=== PATIENT | male | born 1935 | race Caucasian/White ===

== ENCOUNTER 2020-02-02 13:21 | Emergency (ER) | payer MEDICARE, SELFPAY ==
--- NOTE | 2020-02-02 13:22 | CT_ITS ---
EXAMINATION: CT HEAD WITHOUT CONTRAST (STROKE PROTOCOL) CLINICAL INFORMATION: Stroke protocol. Acute expressive aphasia, vomiting. COMPARISON: None TECHNIQUE: Contiguous axial imaging was performed from the skull base to vertex without intravenous administration of contrast. Additional 2-D coronal and sagittal reformatted images are generated on the CT workstation and uploaded to PACS. This CT examination was performed using dose optimization techniques as appropriate, variously including the following: *Automated exposure control *Adjustment of mA and/or kV according to patient size (this includes techniques or standardized protocols for targeted exams where dose is matched to indication/reason for exam; i.e. extremities or head) *Use of iterative reconstruction technique DLP: 623 mGy-cm FINDINGS: There is decreased attenuation in the left insular cortex, deep left frontal lobe, posterior left parietal temporal region and parieto-occipital region consistent with early acute infarct. Focal dense vessel sign involves the left M2 artery, possibly the M1 as well. There is no intracranial hemorrhage or hematoma. No hydrocephalus. No significant mass effect. No midline shift. No mass lesion. The calvarium appears intact. There is no pneumocephalus or orbital emphysema. The visualized sinuses and middle ears and mastoid air cells show no significant mucosal thickening. There are no air-fluid levels. Results are called and discussed with Emergency Department (Jose Clement NP) at [address]/CT head for stroke IMPRESSION: 1. 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 Positive dense vessel sign involving left M2 artery, possibly also involving M1, suggesting acute thrombus. 2. No hydrocephalus, midline shift, or hemorrhage.
--- NOTE | 2020-02-02 13:23 | XR_ITS ---
EXAMINATION: XR CHEST CLINICAL INFORMATION: AMS. COMPARISON: None TECHNIQUE: Frontal view of the chest was obtained. FINDINGS: The lungs are well-expanded and clear acute process. The heart size and pulmonary vascularity is normal. Mild dorsal spine spondylosis is noted. No lytic process. XR/XR chest 1V IMPRESSION: Unremarkable chest exam.
--- NOTE | 2020-02-02 13:23 | CT_ITS ---
EXAMINATION: CT ABDOMEN AND PELVIS WITHOUT CONTRAST CLINICAL INFORMATION: Vomiting. Acute stroke. COMPARISON: CT had noncontrast 02/02/2020 chest radiograph 02/02/2020 TECHNIQUE: Multidetector volumetric imaging was performed from the superior aspect of the liver through the pubic symphysis. Sagittal and coronal reformatted images were obtained on the technologist's workstation. No oral or intravenous contrast. This CT examination was performed using dose optimization techniques as appropriate, variously including the following: *Automated exposure control *Adjustment of mA and/or kV according to patient size (this includes techniques or standardized protocols for targeted exams where dose is matched to indication/reason for exam; i.e. extremities or head) *Use of iterative reconstruction technique DLP: 721 mGy-cm FINDINGS: LUNG BASES: Dependent atelectasis at the posterior bases. No effusion. LIVER, GALLBLADDER, AND BILIARY TREE: The liver is normal in size and smooth in contour and uniform in attenuation. There is no focal hepatic parenchymal lesion or intrahepatic biliary ductal dilatation. The gallbladder is normally distended. There is some increased attenuation in the dependent lumen which may represent sludge. There is no visible gallstone or gallbladder wall thickening or pericholecystic fluid. Common duct is unremarkable. PANCREAS: Unremarkable. SPLEEN: Unremarkable. ADRENAL GLANDS: Unremarkable. KIDNEYS AND URETERS: The kidneys are normal in size, shape, and attenuation. No hydronephrosis, hydroureter, or calculi seen. No perinephric stranding. BLADDER: Circumferential thickening of bladder likely from prostate related chronic outlet obstruction. GASTROINTESTINAL TRACT: There is moderate stool throughout the colon. There is no gaseous dilatation of bowel or focal inflammatory changes in the bowel or mesentery. Appendix is normal. There is no gastric dilatation. No ascites or fluid collection. ABDOMINAL WALL: Small fat-containing right inguinal hernia. LYMPH NODES: No lymphadenopathy. VASCULAR: Unremarkable. PELVIC VISCERA: Enlarged prostate with no nodular indentation bladder base and overall size is approximately 6.3 x 5.3 x 6.2 cm. OSSEOUS STRUCTURES: No acute bony abnormality. Degenerative changes lower thoracic and lumbar spine. Borderline spondylolisthesis L2-L3 and L1-L2. Marked osteoarthritis left hip. CT/CT abdomen pelvis wo con IMPRESSION: 1. Moderate stool throughout colon. No bowel obstruction or inflammatory changes in abdomen or pelvis. No gastric dilatation. 2. Possible sludge in the dependent gallbladder. No cholelithiasis, gallbladder wall thickening, or ductal dilatation. 3. Enlarged prostate with nodular indentation bladder base. Circumferential bladder wall thickening likely chronic outlet obstruction. Upper tracts unremarkable. 4. Degenerative changes spine. Borderline spondylolisthesis L2-L3 and L1-L2. Marked osteoarthritis left hip.
--- NOTE | 2020-02-02 13:23 | ECG_ITS ---
Test Reason : STROKE PROTOCOL Blood Pressure : / mmHG Vent. Rate : 064 BPM Atrial Rate : 064 BPM P-R Int : 196 ms QRS Dur : 156 ms QT Int : 466 ms P-R-T Axes : 065 -37 046 degrees QTc Int : 480 ms Normal sinus rhythm Left axis deviation Right bundle branch block Abnormal ECG No previous ECGs available Referred By: Jose Clement Electronically Signed By:FRANCISCA DEL CID MD
--- NOTE | 2020-02-02 13:28 | ED.AMS ---
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 segment of the left middle cerebral artery and occlusion of a few other M2 branches of the left middle cerebral artery. These findings coincide with the acute infarct is limited on the recent CT scan of the head. 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 This critical result was discussed with Kayla CORNELL at 1:49 PM on 02/02/2020 and it was ascertained that the content and urgency of the report was understood at the time of direct communication. 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 Acute stroke. COMPARISON: CT had noncontrast 02/02/2020 chest radiograph 02/02/2020 TECHNIQUE: Multidetector volumetric imaging was performed from the superior aspect of the liver through the pubic symphysis. Sagittal and coronal reformatted images were obtained on the technologist's workstation. No oral or intravenous contrast. This CT examination was performed using dose optimization techniques as appropriate, variously including the following: *Automated exposure control *Adjustment of mA and/or kV according to patient size (this includes techniques or standardized protocols for targeted exams where dose is matched to indication/reason for exam; i.e. extremities or head) *Use of iterative reconstruction technique DLP: 721 mGy-cm FINDINGS: LUNG BASES: Dependent atelectasis at the posterior bases. No effusion. LIVER, GALLBLADDER, AND BILIARY TREE: The liver is normal in size and smooth in contour and uniform in attenuation. There is no focal hepatic parenchymal lesion or intrahepatic biliary ductal dilatation. The gallbladder is normally distended. There is some increased attenuation in the dependent lumen which may represent sludge. There is no visible gallstone or gallbladder wall thickening or pericholecystic fluid. Common duct is unremarkable. PANCREAS: Unremarkable. SPLEEN: Unremarkable. ADRENAL GLANDS: Unremarkable. KIDNEYS AND URETERS: The kidneys are normal in size, shape, and attenuation. No hydronephrosis, hydroureter, or calculi seen. No perinephric stranding. BLADDER: Circumferential thickening of bladder likely from prostate related chronic outlet obstruction. GASTROINTESTINAL TRACT: There is moderate stool throughout the colon. There is no gaseous dilatation of bowel or focal inflammatory changes in the bowel or mesentery. Appendix is normal. There is no gastric dilatation. No ascites or fluid collection. ABDOMINAL WALL: Small fat-containing right inguinal hernia. LYMPH NODES: No lymphadenopathy. VASCULAR: Unremarkable. PELVIC VISCERA: Enlarged prostate with no nodular indentation bladder base and overall size is approximately 6.3 x 5.3 x 6.2 cm. OSSEOUS STRUCTURES: No acute bony abnormality. Degenerative changes lower thoracic and lumbar spine. Borderline spondylolisthesis L2-L3 and L1-L2. Marked osteoarthritis left hip. CT/CT abdomen pelvis wo con IMPRESSION: 1. Moderate stool throughout colon. No bowel obstruction or inflammatory changes in abdomen or pelvis. No gastric dilatation. 2. Possible sludge in the dependent gallbladder. No cholelithiasis, gallbladder wall thickening, or ductal dilatation. 3. Enlarged prostate with nodular indentation bladder base. Circumferential bladder wall thickening likely chronic outlet obstruction. Upper tracts unremarkable. 4. Degenerative changes spine. Borderline spondylolisthesis L2-L3 and L1-L2. Marked osteoarthritis left hip. Dictated By:CARLOS SAGE MD Signed By:<Electronically signed by CARLOS SAGE MD in [place]>02/02/20 1421 DD/ 1323 TD/TT: Leather Currier: [place] <Jose Clement NP - Last Filed: 02/02/20 14:36> Critical Care Time Critical Care Time Critical Care Time: Yes <Jose Clement NP - Last Filed: 02/02/20 14:36> Total Critical Care Time: 65 <Jose Clement NP - Last Filed: 02/02/20 14:36> Attestation: patient came in Stroke Alert evaluated directly upon arrival. Rapid evaluation done, multiple imaging including consultation with Neurology and multiple re-evaluations at bedside. Arrangement a transfer to tertiary center with high-level care. This time was spent separately outside of the documentation. . <Jose Clement NP - Last Filed: 02/02/20 14:36> Discharge Plan Discharge Clinical Impression: Cerebrovascular accident <Jose Clement NP - Last Filed: 02/02/20 14:36> Patient Disposition: Xfer Other <Jose Clement NP - Last Filed: 02/02/20 14:36>
--- NOTE | 2020-02-02 13:31 | CT_ITS ---
EXAMINATION: CT angio head neck stroke CLINICAL INFORMATION: Altered mental status. COMPARISON: CT scan of the head 02/02/2020. TECHNIQUE: Principal Process Engineer images were obtained. A CT angiogram of the head and neck was performed in the arterial phase after the intravenous administration of 70 mL Omnipaque 350. Pre and delayed postcontrast images of the head were also obtained. MIP reconstructions were generated in multiple orientations at the acquisition workstation. Multiple three-dimensional surface rendered images and maximum intensity projection images were generated on a dedicated 3-D lab workstation. Arterial stenoses are measured in accordance with NASCET criteria or similar method if applicable. This CT examination was performed using dose optimization techniques as appropriate, including one or more of the following: Automated exposure control, iterative reconstruction, and adjustment of technique factors (mA and/or kVp) according to patient size (this includes techniques or standardized protocols for targeted exams where dose is matched to indication/reason for exam). Total exam dose-length product 1480 mGy-cm FINDINGS: Head: There is no acute intracranial hemorrhage. Postcontrast images demonstrate a small focus of cortical gyriform enhancement involving the left precentral sulcus best illustrated on axial image 37 of 55 series 15 indicating a subacute infarct. There is also loss of ferrer-white matter differentiation involving a relatively large portion of the vascular territory of left middle cerebral artery consistent with an acute infarct. A small focus of chronic cortical encephalomalacia involves the left occipital lobe. No intracranial mass effect or midline shift. No abnormal extra-axial collection. Lateral and third ventricles are proportionate to the subarachnoid spaces. No hydrocephalus. The calvarium and skull base are intact. Mastoid air cells and middle ear cavities are well aerated. No active paranasal sinus disease. CT angiogram neck: Scattered atheromatous calcification involves the aortic arch apex. Origins of the major aortic branches are widely patent. Common carotid arteries are normal. Partially calcified atheromatous plaque involves both carotid bifurcations. 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 No stenosis of the right extracranial internal carotid artery. The cervical segments of the vertebral arteries as well as their origins are patent. CT angiogram head: There is reconstitution of contrast filling the left supraclinoid internal carotid artery presumably from cross-filling via the anterior communicating artery. The right intracranial internal carotid artery is widely patent. The intradural vertebral artery segments and basilar artery are patent. There is also a discrete filling defect involving the distal M1 segment of left middle cerebral artery measuring approximately 0.5 cm in length best illustrated on axial image 271 of 921 series 6 as well as a few additional occluded M2 branches within the left middle cerebral artery. The right middle cerebral artery complex and both anterior cerebral arteries are patent. Posterior cerebral artery complexes are patent. Other: Soft tissues of the neck including the thyroid gland are unremarkable. Grossly no pathologically enlarged cervical lymph nodes. Lung apices are clear. 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 There is also a 0.5 cm occlusive thrombus within the distal M1 segment of the left middle cerebral artery and occlusion of a few other M2 branches of the left middle cerebral artery. These findings coincide with the acute infarct is limited on the recent CT scan of the head. 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 This critical result was discussed with Kayla CORNELL at 1:49 PM on 02/02/2020 and it was ascertained that the content and urgency of the report was understood at the time of direct communication.
[2020-02-02 13:43] LABS: Prothrombin Time Whole Bld POC 16.8 sec (11.1-13.5); ~PT, ~INR - Anti Coag Clinic 1.4 (0.9-1.1)
[2020-02-02 13:45] LABS: Glucose, Whole Blood 142 mg/dL (60-115)
--- NOTE | 2020-02-02 13:47 | PC.NURSE ---
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
[2020-02-02] MEDS: iohexoL 350 MG/ML 100 ML INFUS..BTL IV (13:59)
[2020-02-02 14:00] VITALS: BP 148/58; PULSE 71; RESP 18; TEMP 36.6; O2SAT 96; BMI 25.5
[2020-02-02 14:02] LABS: Basophils Percent Auto 0.2 % (0-2); Eosinophils Percent Auto 0.4 % (0-4); Hematocrit 38.4 % (42-52); Hemoglobin 13.4 g/dl (14.0-18.0); Imm Gran Abs Auto 0.03 X10*3/uL (0.00-0.03); Imm Gran Pct Auto 0.4 % (0.0-0.4); Lymphocytes Absolute Auto 0.8 X10*3/uL (1.2-4.9); Lymphocytes Percent Auto 10.2 % (20-40); MANUAL DIFF FLAG NO; Mean Corpuscular HGB Conc 34.9 g/dl (31.0-36.0); Mean Corpuscular Volume 91.6 fL (80-98); Mean Platelet Volume 8.7 fL (9.4-12.4); Monocytes Absolute Auto 0.6 X10*3/uL (0.1-1.2); Monocytes Percent Auto 7.4 % (2-11); Neutrophils Absolute Auto 6.6 X10*3/uL (2.0-8.3); Neutrophils Percent Auto 81.4 % (45-73); Platelet Count 174 X10*3/uL (160-400); Red Blood Count 4.19 X10*6/uL (4.60-5.80); Red Cell Distribution Width 12.3 % (11.0-16.0); White Blood Count 8.1 X10*3/uL (4.8-10.8)
[2020-02-02 14:17] LABS: INTERNATIONAL NORM RATIO 1.1 (0.9-1.1); Prothrombin Time 13.1 SEC (10.8-13.0)
[2020-02-02 14:19] LABS: Partial Thromboplastin Time 28.6 SEC (24.1-38.0)
[2020-02-02 14:23] LABS: COVID-19 Test Negative (Negative)
[2020-02-02 14:23] LABS: Ethanol < 10 mg/dL
[2020-02-02 14:26] LABS: Alanine Aminotransferase 14 U/L (0-40); Albumin Level 3.7 g/dL (3.5-5.0); Alkaline Phosphatase 62 U/L (39-117); Anion Gap 12 (12-20); Aspartate Amino Transferase 30 U/L (5-37); Bilirubin Total 0.9 mg/dL (0.0-1.0); Blood Urea Nitrogen 26 mg/dL (9-16); Calcium 8.4 mg/dL (8.4-10.2); Carbon Dioxide 29 mmol/L (22-29); Chloride 95 mmol/L (96-108); Creatinine Clr Calc Pharmacy 46.2; Estimated Glomerular Filt Rate > 60; Glucose Random 141 mg/dL (60-115); Potassium 3.2 mmol/l (3.3-5.1); Sodium 133 mmol/L (135-145)
[2020-02-02 14:32] LABS: Troponin-I High Sensitivity 8.7 ng/L (<3.5-35.0)
--- NOTE | 2020-02-02 16:54 | MHC.STROKE ---
1314 EMS PRE-NOTIFIED OF STROKE ALERT , PATIENT DISCOVERED BY PHARMACY STAFF TO BE UNABLE TO COMMUNICATE/CONFUSED BUT AMBULATORY. UNKNOWN ONSET TIME. ARRIVED 1321, DIRECT TO CT NO BLEED, CTA WITH LEFT CAROTID OCCLUSION AND M2 LESION. PA CALLED [facility] STROKE INTERVENTIONAL TEAM AND PATIENT WAS ACCEPTED, THEY WILL DO A CT PERFUSION SCAN AND POSSIBLE THROMBECTOMY. NIHSS = 10, NOT A CANDIDATE FOR TPA (ALTEPLASE) DUE TO UNKNOWN ONSET AND CHANGES ON CT. NPO FAILED SWALLOW. STROKE HISTORY HTN. STROKE EDUCATION PROVIDED, PATIENT DID GET UP TO URINATE AND HE WAS BECOMING VERY ATAXIC, COMPLETE APHASIA BUT HE COULD UNDERSTAND WHAT I WAS SAYING, UNALBE TO FOLLOW COMMANDS AND VERY RESTLESS. REPORT GIVEN TO EMS STAFF, DIRECT TO [facility] ED DR JOHNSON ACCEPTING. DEPARTED AT 1433 DIDO ([id number] TIME = 72 MINUTES.
== END 2020-02-02 14:32 | disposition other institution (70) ==
PROVIDERS: Nurse Practitioner Primary Care; Emergency Provider Emergency Medicine; PCP Internal Medicine
DX: I63.9 Cerebral infarction, unspecified (principal); R47.01 Aphasia; R29.710 NIHSS score 10; I10 Essential (primary) hypertension; Z20.828 Contact with and (suspected) exposure to other viral communicable diseases
CPT/HCPCS: 36415; 70450; 70496; 70498; 71045; 74176; 80053; 80320; 82947; 84484; 85025; 85610; 85730; 87635; 93005; 99283; 99291; Q9967